=== PATIENT | female | born 1965 | race Caucasian/White ===

== ENCOUNTER 2016-09-29 11:15 | Outpatient (CLI) | payer OTHER | END 2016-09-29 11:16 | disposition home or self-care (01) | DX: G47.30 Sleep apnea, unspecified (principal); G47.8 Other sleep disorders; G47.10 Hypersomnia, unspecified; R06.83 Snoring ==

== ENCOUNTER 2016-10-17 19:28 | Emergency (ER) | payer OTHER ==
[2016-10-17] MEDS ORDERED: GLYCERIN ADULT SUPP PR STA ×2 (20:10→20:23)
[2016-10-17] MEDS ORDERED: GLYCERIN PEDIATRIC SUPP PR ONE ×2 (20:12→20:26)
[2016-10-17] MEDS ORDERED: MINERAL OIL ENEMA 133 ML BOTTLE RC STA (21:46)
== END 2016-10-17 22:55 | disposition home or self-care (01) ==
DX: K59.00 Constipation, unspecified (principal); I10 Essential (primary) hypertension; E78.00 Pure hypercholesterolemia, unspecified; K21.9 Gastro-esophageal reflux disease without esophagitis; Z79.82 Long term (current) use of aspirin; F17.200 Nicotine dependence, unspecified, uncomplicated
CPT/HCPCS: 99283; A9270

== ENCOUNTER 2018-03-22 11:24 | Observation (INO) | payer OTHER ==
[2018-03-22 12:21] LABS: BASOPHILS # (AUTO) 0.1 10^3/uL (0.0-0.1); BASOPHILS % (AUTO) 0.5 %; EOSINOPHILS # (AUTO) 0.1 10^3/uL (0.0-0.7); EOSINOPHILS % (AUTO) 0.8 %; HGB - HEMOGLOBIN 13.5 g/dL (12.0-16.0); LYMPHOCYTES % (AUTO) 8.1 %; MEAN CORPUSCULAR HEMOGLOBIN 32.3 pg (27.0-31.0); MEAN CORPUSCULAR HGB CONC 34.2 g/dL (32.0-36.0); MEAN CORPUSCULAR VOLUME 94.3 fL (81.0-99.0); MEAN PLATELET VOLUME 8.5 fL (7.9-10.8); MONOCYTES # (AUTO) 0.5 10^3/uL (0.0-1.0); MONOCYTES % (AUTO) 4.3 %; NEUTROPHILS # (AUTO) 10.2 10^3/uL (1.5-6.6); NEUTROPHILS % (AUTO) 86.3 %; PLT - PLATELET COUNT 205 10^3/uL (130-450); RED BLOOD COUNT 4.18 10^6/uL (4.20-5.40); RED CELL DISTRIBUTION WIDTH 13.1 % (12.0-15.0); WHITE BLOOD COUNT 11.8 x10^3/uL (4.8-10.8)
[2018-03-22 12:30] LABS: ALBUMIN 4.3 g/dL (3.2-5.5); ALBUMIN/GLOBULIN RATIO 1.3 (1.0-2.2); BILIRUBIN,TOTAL 0.8 mg/dL (0.2-1.0); CALCIUM 9.6 mg/dL (8.5-10.3); CREATININE 0.6 mg/dL (0.4-1.0); TOTAL PROTEIN 7.6 g/dL (6.7-8.2)
[2018-03-22] MEDS ORDERED: ONDANSETRON 4 MG/2 ML VIAL IVP STA (12:41)
[2018-03-22] MEDS ORDERED: IPRATROPIUM/ALBUTEROL 3 ML NEB INH STA (12:41)
--- NOTE | 2018-03-22 12:41 | ED Physician Documentation ---
History of Present Illness - Stated complaint Stated Complaint: COUGH/SOA - Chief complaint Chief Complaint: Resp - History obtained from History obtained from: Patient - History of Present Illness Timing: Today, How many hours ago (7) Pain level max: 6 Pain level now: 5 Improved by: nothing Worsened by: nothing - Additonal information Additional information: Patient is a 52-year-old female presents to the emergency department with vomiting this morning. Started about 6 AM. She states she had chest pain before the vomiting. The chest pain has continued and been constant. She did not take any of her home medications today. Is no longer nauseated. No fevers. Does have a dry cough. Feels mildly short of breath. Review of Systems Ten Systems: 10 systems reviewed and negative Constitutional: denies: Fever, Chills Ears: denies: Ear pain Nose: denies: Rhinorrhea / runny nose, Congestion Throat: denies: Sore throat Cardiac: reports: Chest pain / pressure Respiratory: reports: Cough, Wheezing GI: denies: Abdominal Pain, Nausea, Vomiting, Diarrhea : denies: Dysuria Skin: denies: Rash Musculoskeletal: denies: Neck pain, Back pain Neurologic: denies: Focal weakness, Numbness, Headache PD PAST MEDICAL HISTORY - Past Medical History Past Medical History: Yes Cardiovascular: Hypertension, High cholesterol Respiratory: None Endocrine/Autoimmune: Other GI: GERD, Hiatal hernia : None HEENT: None Psych: Panic attacks Musculoskeletal: None Derm: None - Past Surgical History Past Surgical History: Yes General: Appendectomy, Hiatal hernia repair, EGD - Present Medications Home Medications: Ambulatory Orders Medication Instructions Recorded Confirmed Losartan [Cozaar] 25 mg PO DAILY 01/12/14 03/22/18 Venlafaxine ER [Effexor ER] 75 mg PO DAILY 01/12/14 03/22/18 Aspirin [Aspir 81] 81 mg PO DAILY 02/06/14 03/22/18 Metoprolol Succinate 25 mg PO DAILY 02/18/16 03/22/18 Simvastatin 20 mg PO DAILY 02/18/16 03/22/18 Cetirizine HCl 10 mg PO DAILY 03/22/18 03/22/18 Omeprazole 40 mg PO DAILY 03/22/18 03/22/18 - Allergies Allergies/Adverse Reactions: Allergies Allergy/AdvReac Type Severity Reaction Status Date / Time No Known Drug Allergies Allergy Verified 03/18/17 19:30 - Social History Does the pt smoke?: Yes Smoking Status: Current every day smoker Does the pt drink ETOH?: Yes Does the pt have substance abuse?: No - Immunizations Immunizations are current?: Yes - POLST Patient has POLST: No PD ED PE NORMAL - Vitals Vital signs reviewed: Yes - General General: Alert and oriented X 3, No acute distress, Well developed/nourished - HEENT HEENT: PERRL, Moist mucous membranes - Neck Neck: Supple, no meningeal sign - Cardiac Cardiac: RRR, Strong equal pulses - Respiratory Respiratory: No respiratory distress, Other (wheezing B) - Abdomen Abdomen: Soft, Non tender, Non distended - Back Back: No spinal TTP - Derm Derm: Warm and dry - Extremities Extremities: No edema, No calf tenderness / cord - Neuro Neuro: Alert and oriented X 3 - Psych Psych: Normal mood, Normal affect Results - Vitals Vitals: Vital Signs - 24 hr 03/22/18 03/22/18 03/22/18 11:38 11:54 12:57 Temperature 36.5 C Heart Rate 88 79 90 Respiratory 20 16 20 Rate Blood Pressure 173/85 H 162/84 H O2 Saturation 95 96 03/22/18 03/22/18 03/22/18 13:02 13:36 13:40 Temperature Heart Rate 80 121 H 143 H Respiratory 14 11 L 18 Rate Blood Pressure 154/74 H 135/67 H 134/78 H O2 Saturation 99 96 94 03/22/18 03/22/18 03/22/18 13:47 13:50 14:00 Temperature Heart Rate 145 H 158 H 166 H Respiratory 18 16 Rate Blood Pressure 140/85 H 157/59 H 120/83 H O2 Saturation 94 2 L 03/22/18 03/22/18 03/22/18 14:15 15:03 15:37 Temperature Heart Rate 165 H 110 H 102 H Respiratory 12 18 16 Rate Blood Pressure 121/83 H 140/61 H 119/64 O2 Saturation 94 96 93 03/22/18 16:01 Temperature Heart Rate 101 H Respiratory 14 Rate Blood Pressure 130/67 O2 Saturation 98 Oxygen O2 Source Room air - EKG (time done) 1156 Rate: Rate (enter#) (80) Rhythm: NSR [place]: Normal Intervals: Normal [place] QRS: Normal Ischemia: Normal ST segments 1329 Rate: Rate (enter#) (159) Rhythm: Atrial fibrillation (RVR) [place]: Normal QRS: Normal Ischemia: Non specific changes Computer interpretation: Agree with computer - Labs Labs: Laboratory Tests 03/22/18 03/22/18 03/22/18 12:10 12:10 12:10 WBC 11.8 H RBC 4.18 L Hgb 13.5 Hct 39.4 MCV 94.3 MCH 32.3 H MCHC 34.2 RDW 13.1 Plt Count 205 MPV 8.5 Neut # (Auto) 10.2 H Lymph # (Auto) 1.0 L [place] # (Auto) 0.5 Eos # (Auto) 0.1 Baso # (Auto) 0.1 Absolute Nucleated RBC 0.00 Nucleated RBC % 0.0 Sodium 135 Potassium 4.1 Chloride 99 L Carbon Dioxide 25 Anion Gap 11.0 BUN 13 Creatinine 0.6 Estimated GFR (MDRD) 105 Glucose 118 H Calcium 9.6 Total Bilirubin 0.8 AST 28 ALT 45 Alkaline Phosphatase 127 H Troponin I < 0.04 Total Protein 7.6 Albumin 4.3 Globulin 3.3 Albumin/Globulin Ratio 1.3 Lipase 20 L - Rads (name of study) cxr Radiology: Prelim report reviewed, EMP read contemporaneously, See rad report ( No consolidation evident. ) PD MEDICAL DECISION MAKING - ED course Complexity details: reviewed old records, reviewed results, re-evaluated patient , considered differential, d/w patient, d/w events solutions consultant ED course: Patient is a 52-year-old female who presents to the emergency department with atrial fibrillation with rapid ventricular response. She also has chest pain. She initially was in sinus rhythm, but then developed the atrial fibrillation. No history of same. Given Cardizem which did slow her down, but did not convert. Discussed the case with Dr. Rebolledo and he asked that we try procainamide in the emergency department first, she did not convert during the infusion, but did convert soon after. She then developed recurrent chest pain so we will place her in the hospital for rule out MD and likely echo. This document was made in part using voice recognition software. While efforts are made to proofread this document, sound alike and grammatical errors may occur. - Sepsis Event Vital Signs: Vital Signs - 24 hr 03/22/18 03/22/18 03/22/18 11:38 11:54 12:57 Temperature 36.5 C Heart Rate 88 79 90 Respiratory 20 16 20 Rate Blood Pressure 173/85 H 162/84 H O2 Saturation 95 96 03/22/18 03/22/18 03/22/18 13:02 13:36 13:40 Temperature Heart Rate 80 121 H 143 H Respiratory 14 11 L 18 Rate Blood Pressure 154/74 H 135/67 H 134/78 H O2 Saturation 99 96 94 03/22/18 03/22/18 03/22/18 13:47 13:50 14:00 Temperature Heart Rate 145 H 158 H 166 H Respiratory 18 16 Rate Blood Pressure 140/85 H 157/59 H 120/83 H O2 Saturation 94 2 L 03/22/18 03/22/18 03/22/18 14:15 15:03 15:37 Temperature Heart Rate 165 H 110 H 102 H Respiratory 12 18 16 Rate Blood Pressure 121/83 H 140/61 H 119/64 O2 Saturation 94 96 93 03/22/18 16:01 Temperature Heart Rate 101 H Respiratory 14 Rate Blood Pressure 130/67 O2 Saturation 98 Oxygen O2 Source Room air Departure - Departure Disposition: ED Place in Observation Clinical Impression: New onset a-fib, Atrial fibrillation with RVR Chest pain Qualifiers: Chest pain type: unspecified Qualified Code(s): R07.9 - Chest pain, unspecified Condition: Stable Discharge Date/Time: 03/22/18 17:15
--- NOTE | 2018-03-22 12:50 | XRAY Report ---
Procedure Date: 03/22/2018 Accession Number: [id number] / [id number] Procedure: XR - Chest 2 View X-Ray CPT Code: 37298 FULL RESULT: EXAM: CHEST RADIOGRAPHY EXAM DATE: 03/22/2018 12:39 PM. CLINICAL HISTORY: Cough. Acute chest pain this morning. COMPARISON: CHEST 2 VIEW PA/LAT 07/27/2016. TECHNIQUE: 2 views. FINDINGS: Lungs/Pleura: No focal opacities evident. No pleural effusion. No pneumothorax. Normal volumes. Mediastinum: Heart and mediastinal contours are unremarkable. Other: None. IMPRESSION: No consolidation evident. RADIA
[2018-03-22] MEDS ORDERED: diltiaZEM INJ 5 MG/ML VIAL IVP STA (13:29)
[2018-03-22] MEDS ORDERED: diltiaZEM INJ 125 MG in DEXTROSE 5% 100 ML IV STA (13:37)
[2018-03-22] MEDS ORDERED: PROCAINAMIDE 1,000 MG in SODIUM CHLORIDE 0.9% 240 ML IV STA (13:46)
[2018-03-22] MEDS ORDERED: NITROGLYCERIN SL 0.4 MG TABLET SL STA (15:50)
[2018-03-22] MEDS ORDERED: ACETAMINOPHEN 325 MG TABLET PO PRN (16:06)
[2018-03-22] MEDS ORDERED: PROMETHAZINE 25 MG/1 ML VIAL IM PRN (16:06)
[2018-03-22] MEDS ORDERED: ZOLPIDEM 5 MG TABLET PO PRN (16:06)
[2018-03-22] MEDS ORDERED: ONDANSETRON 4 MG/2 ML VIAL IVP PRN (16:06)
[2018-03-22] MEDS ORDERED: PROCHLORPERAZINE 10 MG/2 ML VIAL IVP PRN (16:06)
[2018-03-22] MEDS ORDERED: NITROGLYCERIN SL 0.4 MG TABLET SL PRN (16:06)
--- NOTE | 2018-03-22 16:21 | HISTORY & PHYSICAL EXAMINATION ---
Chief Complaint - Chief Complaint Chief Complaint: Chest pain History of Present Illness - Admitted From Admitted From:: Emergency Department - History Obtained From Records Reviewed: Yes History obtained from: Patient Exam Limitations: None - History of Present Illness HPI Comment/Other: Patient is a 52-year-old female with a past medical history significant for obesity, esophageal spasm, hypertension, GERD and hyperlipidemia who presents to the emergency department with a chief complaint of chest pain. The patient states that when she woke up this morning she had a headache. She states that things started the day before when she started having some sinus congestion. She denies any fevers or chills. She states that around 630 this morning she began having chest pain and shortness of breath which continued on and off throughout the morning. She states that her chest pain was located substernal and radiated to the back. She states it was a sharp pain and was different from chest pain she has had in the past. Patient states that she had chest pain for several years where it radiated to her jaw and she was worked up by a picked edge sewing machine operator and found to have esophageal spasm. She states that she underwent an angiogram 3 years ago which showed some mild atherosclerosis but she did not require any stents. She states that she was having the shortness of breath associated with the chest pain. She states that the chest pain or shortness of breath were occurring at both rest and with exertion. She also admits to some numbness in her right hand associated with the chest pain. She denies any cough. She does admit that she was having some chills. She states that when she stood up she felt as though she was going to pass out and finally decided to come to the emergency department. The patient denies any diaphoresis but does state that she has been having nausea for about 1 week now. She denies any abdominal pain, dysuria, increased urinary urgency or frequency. Patient denies any blurred vision, sore throat, difficulty swallowing, orthopnea , PND, increased lower extremity swelling, diarrhea, constipation, back pain, neck stiffness, muscle aches, joint pain, joint swelling, rash, hair loss, changes in her appetite, recent unintentional weight loss or any focal neurologic deficits. On presentation to the emergency department the patient was initially afebrile and hypertensive with a normal heart rate and was not in any respiratory distress. The patient was found to have some slight wheezing on examination, was complaining of shortness of breath and chest paintherefore the emergency room physician gave her a neb treatment. The patient initially was underwent routine lab work which showed a negative troponin and a mild leukocytosis. The patient's chest x-ray was negative for any acute consolidation. The patient's EKG initially showed no ST elevations or acute ischemic changes. The patient shortly after receiving the nebulizer treatment went into atrial fibrillation with a rapid ventricular rate initially in the 120s. The heart rate then sheila to the 160s and patient was given a dose of 20 mg IV diltiazem. Despite the diltiazem the patient's heart rate remained in the 160s. The patient stated that she had never had atrial fibrillation before. The emergency room physician offered the patient a cardioversion but the patient refused. The emergency room physician then did a chemical cardioversion by giving her procainamide. After receiving 1 g of procainamide the patient did convert back to sinus rhythm with heart rate in the high 90s. Despite converting the patient continued to have intermittent chest pain. She continued to have substernal chest pain radiating to the back. With numbness in her right hand. She was given a dose of nitroglycerin with which the patient did seem to have some improvement. The patient was placed in observation for rule out of acute coronary syndrome and monitoring. History - Past Medical History Cardiovascular: reports: Hypertension, High cholesterol Respiratory: reports: None Endocrine/Autoimmune: reports: Other GI: reports: GERD, Hiatal hernia, Other (Esophageal spasm) : reports: None HEENT: reports: None Psych: reports: Panic attacks Musculoskeletal: reports: None Derm: reports: None MRSA Hx?: No - Past Surgical History General: reports: Appendectomy, Hiatal hernia repair, EGD - Family & Social History Family History: Mother: CVA/TIA, [place], Father: CAD, Sister: COPD/Emphysema Living arrangement: At home Living Situation: With spouse/s.o. Social History Notes: The patient lives in [place] with her . They have 2 children. She has been on [facility] for the last 20 years. She is originally from [place], [place]. The patient's was in the [place] so prior to coming to [facility] they lived in [facility]. 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 She states that she does smoke 1-2 cigarettes a day and has been doing so for 30+ years. She states that she has never been a heavy smoker and she denies any illicit drug use. She states that she does occasionally drink alcohol but is not a heavy drinker either. - POLST Patient has POLST: No POLST Status: Full Code Meds/Allgy - Home Medications Home Medications: Ambulatory Orders Medication Instructions Recorded Confirmed Losartan [Cozaar] 25 mg PO DAILY 01/12/14 03/22/18 Venlafaxine ER [Effexor ER] 75 mg PO DAILY 01/12/14 03/22/18 Aspirin [Aspir 81] 81 mg PO DAILY 02/06/14 03/22/18 Metoprolol Succinate 25 mg PO DAILY 02/18/16 03/22/18 Simvastatin 20 mg PO DAILY 02/18/16 03/22/18 Cetirizine HCl 10 mg PO DAILY 03/22/18 03/22/18 Omeprazole 40 mg PO DAILY 03/22/18 03/22/18 - Allergies Allergies/Adverse Reactions: Allergies Allergy/AdvReac Type Severity Reaction Status Date / Time No Known Drug Allergies Allergy Verified 10/17/16 19:30 Review of Systems - Other Findings Other Findings: A comprehensive review of systems was performed the pertinent positives and negatives are stated above in the HPI and the remainder of the review of systems is negative. Exam - Vital Signs Reviewed Vital Signs: Yes Vital Signs: Vital Signs x48h Temp Pulse Resp BP Pulse Ox 03/22/18 16:17 107 H 17 115/49 L 95 03/22/18 16:10 101 H 17 128/69 94 03/22/18 16:01 101 H 14 130/67 98 03/22/18 15:37 102 H 16 119/64 93 03/22/18 15:03 110 H 18 140/61 H 96 03/22/18 14:15 165 H 12 121/83 H 94 03/22/18 14:00 166 H 16 120/83 H 2 L 03/22/18 13:50 158 H 18 157/59 H 94 03/22/18 13:47 145 H 140/85 H 03/22/18 13:40 143 H 18 134/78 H 94 03/22/18 13:36 121 H 11 L 135/67 H 96 03/22/18 13:02 80 14 154/74 H 99 03/22/18 12:57 90 20 03/22/18 11:54 79 16 162/84 H 96 03/22/18 11:38 36.5 C 88 20 173/85 H 95 - Physical Exam General Appearance: positive: No acute distress, Alert Eyes Bilateral: positive: Normal inspection, PERRL, EOMI, No lid inflammation, Conjunctivae nml, No scleral icterus ENT: positive: ENT inspection nml, Pharynx nml, No signs of dehydration. negative: Purulent nasal drainage, Pharyngeal erythema, Oral lesions Neck: positive: Nml inspection, Thyroid nml, No JVD, Trachea midline. negative : Thyromegaly, Lymphadenopathy (R), Lymphadenopathy (L), Stiff neck, Carotid bruit, Tracheal deviation Respiratory: positive: Chest non-tender, No respiratory distress, Breath sounds nml. negative: Wheezes, Rales, Rhonchi Cardiovascular: positive: No murmur, No gallop, Tachycardia Peripheral Pulses: positive: 2+ Abdomen: positive: Non-tender, No organomegaly, Nml bowel sounds, No distention. negative: Guarding, Rebound, Hepatomegaly Back: positive: Nml inspection. negative: CVA tenderness (R), CVA tenderness (L ) Skin: positive: Color nml, No rash, Warm, Dry. negative: Cyanosis, Diaphoresis , Pallor, Skin rash Extremities: positive: Non-tender, Full ROM, Nml appearance, No pedal edema Neurologic/Psychiatric: positive: Oriented x3, CN's nml (2-12), Motor nml, Sensation nml, Mood/affect nml Conclusion/Plan - Problem List (1) Chest pain Conclusion/Plan: Patient has risk factors of HTN, obesity, hyperlipidemia and tobacco use. She had a clean coronary angiogram 3 years ago. Chest pain has atypical features but given new onset a fib it is concerning enough that patient needs observation for serial trops and echocardiogram. Patients initial EKG, chest xray and troponin were negative. Plan: Serial troponins x3 Telemetry monitoring Nitroglycerin when necessary for chest pain Aspirin Lipitor Echo Qualifiers: Chest pain type: unspecified Qualified Code(s): R07.9 - Chest pain, unspecified (2) New onset a-fib Conclusion/Plan: While patient was in the emergency department she developed atrial fibrillation with a rapid ventricular rate up to the 160s. Rate did not improve despite 20 mg of IV diltiazem. Patient was placed on procainamide 1 g over one hour. The patient converted back to sinus rhythm. The patient initially had presented with chest pain, shortness of breath and feeling as though she was going to pass out. These were all thought to be symptoms of her atrial fibrillation which was likely occurring off and on at home. The patient however continued to have chest pain after she converted to sinus rhythm. The patient's initial troponin and EKG were negative. The patient's chads 2 score is 1 therefore patient will be placed on aspirin. Plan: Continue patient's home dose of metoprolol for rate control and titrate as needed Echocardiogram Check TSH Serial troponins Telemetry monitoring Start aspirin Patient to follow-up with her picked edge sewing machine operator posthospitalization (3) Hypertension Conclusion/Plan: Patient has history of hypertension and on presentation she was hypertensive. After getting IV diltiazem and procainamide the patient's blood pressure has now improved. The patient will be continued on her home medications for hypertension including losartan and metoprolol. We will continue to monitor the patient's blood pressure and titrate medications as needed. Qualifiers: Hypertension type: essential hypertension Qualified Code(s): I10 - Essential (primary) hypertension (4) Hyperlipidemia Conclusion/Plan: Patient is a history of hyperlipidemia and is on simvastatin. While the patient is hospitalized we will place her on Lipitor. We will get a lipid profile in the morning. Qualifiers: Hyperlipidemia type: unspecified Qualified Code(s): E78.5 - Hyperlipidemia , unspecified (5) Tobacco abuse Conclusion/Plan: The patient smokes 1-2 cigarettes a day. Counseled on quitting smoking. Offered nicotine patch. - Lab Results Lab results reviewed: Yes Estuardo Bones: 03/22/18 12:10 03/22/18 12:10 - Diagnostic Imaging Results Diagnostic Imaging Results: positive: Final report reviewed Diagnostic Imaging Results Comments: Chest x-ray Impression: No consolidation evident - EKG Results EKG Interpreted Independently: Yes EKG Findings: inferior Q waves, no ST elevations, no ischemic changes Core Measures - Anticipated LOS I expect patient to be DC'd or transferred within 96 hours.: Yes - DVT/VTE - Prophylaxis VTE/DVT Prophylaxis med ordered at admit?: Yes
[2018-03-22] MEDS: VENLAFAXINE ER 75 MG CAPSULE PO SCH (17:58)
[2018-03-22] MEDS: METOPROLOL SUCCINATE 25 MG TABLET PO SCH (17:59)
[2018-03-22] MEDS: SODIUM CHLORIDE FLUSH 0.9% 10 ML SYRINGE IVP SCH (17:59)
[2018-03-22] MEDS: oxyCODONE 5 MG TABLET PO PRN (18:02)
[2018-03-22] MEDS: MORPHINE 2 MG/ML SYRINGE IVP PRN (22:28)
[2018-03-22] MEDS: SODIUM CHLORIDE FLUSH 0.9% 10 ML SYRINGE IVP PRN (22:29)
[2018-03-23] MEDS: SODIUM CHLORIDE FLUSH 0.9% 10 ML SYRINGE IVP SCH ×2 (00:16→13:36)
[2018-03-23] MEDS: MORPHINE 2 MG/ML SYRINGE IVP PRN ×2 (02:39→05:03)
[2018-03-23] MEDS: SODIUM CHLORIDE FLUSH 0.9% 10 ML SYRINGE IVP PRN ×3 (02:39→05:08)
[2018-03-23 03:29] LABS: BASOPHILS # (AUTO) 0.1 10^3/uL (0.0-0.1); BASOPHILS % (AUTO) 0.8 %; EOSINOPHILS # (AUTO) 0.2 10^3/uL (0.0-0.7); EOSINOPHILS % (AUTO) 2.8 %; HGB - HEMOGLOBIN 12.7 g/dL (12.0-16.0); LYMPHOCYTES # (AUTO) 1.7 10^3/uL (1.5-3.5); MEAN CORPUSCULAR HEMOGLOBIN 33.1 pg (27.0-31.0); MEAN CORPUSCULAR HGB CONC 35.1 g/dL (32.0-36.0); MEAN CORPUSCULAR VOLUME 94.2 fL (81.0-99.0); MEAN PLATELET VOLUME 8.4 fL (7.9-10.8); MONOCYTES # (AUTO) 0.5 10^3/uL (0.0-1.0); MONOCYTES % (AUTO) 7.8 %; NEUTROPHILS # (AUTO) 4.3 10^3/uL (1.5-6.6); NEUTROPHILS % (AUTO) 63.6 %; PLT - PLATELET COUNT 191 10^3/uL (130-450); RED BLOOD COUNT 3.83 10^6/uL (4.20-5.40); RED CELL DISTRIBUTION WIDTH 13.2 % (12.0-15.0); WHITE BLOOD COUNT 6.8 x10^3/uL (4.8-10.8)
[2018-03-23 03:42] LABS: ALBUMIN 3.8 g/dL (3.2-5.5); ALBUMIN/GLOBULIN RATIO 1.3 (1.0-2.2); ALKALINE PHOSPHATASE 106 IU/L (42-121); ALT ALANINE AMINOTRANSFERASE 29 IU/L (10-60); AST ASPARTATE AMINOTRANSFERASE 20 IU/L (10-42); BILIRUBIN,TOTAL 0.6 mg/dL (0.2-1.0); BUN - BLOOD UREA NITROGEN 11 mg/dL (6-20); CALCIUM 9.1 mg/dL (8.5-10.3); CARBON DIOXIDE - CO2 24 mmol/L (21-32); CHLORIDE 102 mmol/L (101-111); CHOL/HDL RATIO 3.7 (<4.4); CHOLESTEROL 187 mg/dL; CREATININE 0.5 mg/dL (0.4-1.0); GFR - MDRD 130 (>89); GLUCOSE 110 mg/dL (70-100); HDL CHOLESTEROL 50 mg/dL; LDL CHOLESTEROL,CALCULATED 97 mg/dL; LDL/HDL RATIO 1.9 (<4.4); SODIUM 136 mmol/L (135-145); TOTAL PROTEIN 6.7 g/dL (6.7-8.2); VLDL CHOLESTEROL 40 mg/dL
[2018-03-23] MEDS: oxyCODONE 5 MG TABLET PO PRN ×2 (05:55→09:53)
[2018-03-23] MEDS ORDERED: PANTOPRAZOLE 40 MG TABLET PO SCH (07:00)
[2018-03-23] MEDS ORDERED: IOPAMIDOL-300 100 ML VIAL ONE (08:57)
[2018-03-23] MEDS ORDERED: LOSARTAN 50 MG TABLET PO SCH (09:00)
[2018-03-23] MEDS ORDERED: POLYETHYLENE GLYCOL 3350 17 GM PACKET PO SCH (09:00)
[2018-03-23] MEDS ORDERED: ENOXAPARIN 40 MG/0.4 ML SYRINGE SUBQ SCH (09:00)
[2018-03-23] MEDS ORDERED: SODIUM CHLORIDE 0.9% 1,000 ML IV SCH (09:00)
[2018-03-23] MEDS ORDERED: CETIRIZINE 10 MG TABLET PO SCH (09:00)
[2018-03-23] MEDS ORDERED: ATORVASTATIN 10 MG TABLET PO SCH (09:00)
[2018-03-23] MEDS ORDERED: ASPIRIN EC 81 MG TABLET PO SCH (09:00)
[2018-03-23] MEDS: METOPROLOL SUCCINATE 25 MG TABLET PO SCH (09:53)
[2018-03-23] MEDS: VENLAFAXINE ER 75 MG CAPSULE PO SCH (09:53)
--- NOTE | 2018-03-23 11:43 | CT Report ---
Procedure Date: 03/23/2018 Accession Number: [id number] / [id number] Procedure: CT - Chest Angio (PE) CPT Code: FULL RESULT: EXAM: CT ANGIOGRAM CHEST EXAM DATE: 03/23/2018 11:09 AM. CLINICAL HISTORY: Pleurtic chest pain and SOB w new onset a fib. COMPARISON: None. TECHNIQUE: Routine helical imaging was performed through the chest in the pulmonary arterial phase. IV Contrast: ISOVUE 300 80mL. Reconstructions: Coronal 3-D MIP reconstructions.Sagittal and coronal. In accordance with CT protocol optimization, one or more of the following dose reduction techniques were utilized for this exam: automated exposure control, adjustment of mA and/or KV based on patient size, or use of iterative reconstructive technique. FINDINGS: Pulmonary Arteries: Diagnostic quality: Adequate through the segmental arteries. No evidence for acute or chronic pulmonary emboli. RV/LV is within normal limits. There is no interventricular septal bowing. There is mild reflux of contrast material in the IVC. Lungs/Pleura: Scattered areas of subsegmental atelectasis are seen bilaterally, most marked right lower lobe. No nodules, or edema. No effusions or pneumothorax. Mediastinum: no cardiac enlargement or adenopathy. Thoracic Aorta: Unremarkable. Upper Abdomen: Unremarkable. Other: Unremarkable bony structures. IMPRESSION: 1. No pulmonary emboli. 2. Scattered areas of subsegmental atelectasis bilaterally, most marked right lower lobe. RADIA
--- NOTE | 2018-03-23 12:05 | Discharge Plan ---
Discharge Plan Disposition: Home, Self Care Condition: Fair Prescriptions: Ibuprofen 600 mg PO BID #14 tablet Metoprolol Succinate [Toprol Xl] 25 mg PO DAILY #30 tablet Diet: Diabetic Activity Restrictions: No Restrictions Shower Restrictions: No Driving Restrictions: No Weight Bearing: Full Weight Additional Instructions or Follow Up instructions: You were admitted for chest pain and our work up was negative for pneumonia, heart attack, blood clot to your lungs and congestive heart failure. We believe that your pain is musculoskeletal so I have prescribed you ibuprofen 600 mg that you should take twice a day for the next week and hopefully this will help to treat your pain. If the pain continues beyond that I suggest you see your PCP. While you were in the ER you were found to have atrial fibrillation with a rapid rate. You converted back to normal sinus rhythm but you need to follow up with your ending machine operator regarding the A fib for further evaluation. For now continue to take aspirin and metoprolol. No Smoking: If you smoke, Please STOP! Call for help. Follow-up with: CATHRYN GUERRA PA-C [Primary Care Provider] -
[2018-03-23 12:18] VITALS: BP 135/70
--- NOTE | 2018-03-23 12:51 | DISCHARGE SUMMARY ---
Discharge Summary Admit Date: 03/22/18 Discharge Date: 03/23/18 Discharging Provider: Pardeep Rebolledo MD Primary Care Provider: Zulema Villela MD Code Status: Attempt Resuscitation Condition at Discharge: Fair Discharge Disposition: 01 Home, Self Care - DIAGNOSES Admission Diagnoses: 1. Chest Pain 2. New Onset Atrial Fibrillation 3. Hypertension 4. Hyperlipidemia 5. Tobacco Abuse Discharge Diagnoses with Status of Each Condition: 1. Chest Pain: Stable 2. New Onset Atrial Fibrillation: Stable 3. Hypertension: Stable 4. Hyperlipidemia: Stable 5. Tobacco Abuse: Stable - HPI History of Present Illness: Patient is a 52-year-old female with a past medical history significant for obesity, esophageal spasm, hypertension, GERD and hyperlipidemia who presents to the emergency department with a chief complaint of chest pain. The patient states that when she woke up this morning she had a headache. She states that things started the day before when she started having some sinus congestion. She denies any fevers or chills. She states that around 630 this morning she began having chest pain and shortness of breath which continued on and off throughout the morning. She states that her chest pain was located substernal and radiated to the back. She states it was a sharp pain and was different from chest pain she has had in the past. Patient states that she had chest pain for several years where it radiated to her jaw and she was worked up by a it director and found to have esophageal spasm. She states that she underwent an angiogram 3 years ago which showed some mild atherosclerosis but she did not require any stents. She states that she was having the shortness of breath associated with the chest pain. She states that the chest pain or shortness of breath were occurring at both rest and with exertion. She also admits to some numbness in her right hand associated with the chest pain. She denies any cough. She does admit that she was having some chills. She states that when she stood up she felt as though she was going to pass out and finally decided to come to the emergency department. The patient denies any diaphoresis but does state that she has been having nausea for about 1 week now. She denies any abdominal pain, dysuria, increased urinary urgency or frequency. Patient denies any blurred vision, sore throat, difficulty swallowing, orthopnea , PND, increased lower extremity swelling, diarrhea, constipation, back pain, neck stiffness, muscle aches, joint pain, joint swelling, rash, hair loss, changes in her appetite, recent unintentional weight loss or any focal neurologic deficits. On presentation to the emergency department the patient was initially afebrile and hypertensive with a normal heart rate and was not in any respiratory distress. The patient was found to have some slight wheezing on examination, was complaining of shortness of breath and chest paintherefore the emergency room physician gave her a neb treatment. The patient initially was underwent routine lab work which showed a negative troponin and a mild leukocytosis. The patient's chest x-ray was negative for any acute consolidation. The patient's EKG initially showed no ST elevations or acute ischemic changes. The patient shortly after receiving the nebulizer treatment went into atrial fibrillation with a rapid ventricular rate initially in the 120s. The heart rate then sheila to the 160s and patient was given a dose of 20 mg IV diltiazem. Despite the diltiazem the patient's heart rate remained in the 160s. The patient stated that she had never had atrial fibrillation before. The emergency room physician offered the patient a cardioversion but the patient refused. The emergency room physician then did a chemical cardioversion by giving her procainamide. After receiving 1 g of procainamide the patient did convert back to sinus rhythm with heart rate in the high 90s. Despite converting the patient continued to have intermittent chest pain. She continued to have substernal chest pain radiating to the back. With numbness in her right hand. She was given a dose of nitroglycerin with which the patient did seem to have some improvement. The patient was placed in observation for rule out of acute coronary syndrome and monitoring. - HOSPITAL COURSE Hospital Course: (1) Chest pain Conclusion/Plan: Patient has risk factors of HTN, obesity, hyperlipidemia and tobacco use. She had a clean coronary angiogram 3 years ago. Chest pain has atypical features but given new onset a fib it is concerning enough that patient needs observation for serial trops and echocardiogram. Patients initial EKG, chest xray and troponin were negative. Troponin negative x3, Echo showed normal EF with no wall motion abnormalities and was otherwise unremarkable. Patient continued to have persistent chest pain which was worse with deep breathing therefore CTA lungs was ordered and was negative for PE. Patients chest pain thought to most likely be MSK and therefore patient discharged with NSAID to take for 1 week. Patient will follow up with PCP if pain persists. Consider stress test as an outpatient. (2) New onset a-fib Conclusion/Plan: While patient was in the emergency department she developed atrial fibrillation with a rapid ventricular rate up to the 160s. Rate did not improve despite 20 mg of IV diltiazem. Patient was placed on procainamide 1 g over one hour. The patient converted back to sinus rhythm. The patient initially had presented with chest pain, shortness of breath and feeling as though she was going to pass out. These were all thought to be symptoms of her atrial fibrillation which was likely occurring off and on at home. The patient however continued to have chest pain after she converted to sinus rhythm. The patient's initial troponin and EKG were negative. The patient's chads 2 score is 1 therefore patient will be placed on aspirin. Trop negative, Echo normal and TSH normal No further episodes of a fib on tele overnight. CTA Lungs negative Patient continued on ASA and metoprolol Follow up with cardiology as outpatient. (3) Hypertension Conclusion/Plan: Stable Continued on home meds at discharge Qualifiers: Hypertension type: essential hypertension Qualified Code(s): I10 - Essential (primary) hypertension (4) Hyperlipidemia Conclusion/Plan: LDL less than 100 Well controlled Continue simvastatin Qualifiers: Hyperlipidemia type: unspecified Qualified Code(s): E78.5 - Hyperlipidemia , unspecified (5) Tobacco abuse Conclusion/Plan: The patient smokes 1-2 cigarettes a day. Counseled on quitting smoking. - ALLERGIES Allergies/Adverse Reactions: Allergies Allergy/AdvReac Type Severity Reaction Status Date / Time No Known Drug Allergies Allergy Verified 10/17/16 19:30 - MEDICATIONS Home Medications: Ambulatory Orders Medication Instructions Recorded Confirmed Losartan [Cozaar] 25 mg PO DAILY 01/12/14 03/22/18 Venlafaxine ER [Effexor ER] 75 mg PO DAILY 01/12/14 03/22/18 Aspirin [Aspir 81] 81 mg PO DAILY 02/06/14 03/22/18 Metoprolol Succinate 25 mg PO DAILY 02/18/16 03/22/18 Simvastatin 20 mg PO DAILY 02/18/16 03/22/18 Cetirizine HCl 10 mg PO DAILY 03/22/18 03/22/18 Omeprazole 40 mg PO DAILY 03/22/18 03/22/18 Ibuprofen 600 mg PO BID #14 tablet 03/23/18 Metoprolol Succinate [Toprol Xl] 25 mg PO DAILY #30 tablet 03/23/18 - PHYSICAL EXAM AT DISCHARGE General Appearance: positive: No acute distress, Alert Eyes Bilateral: positive: Normal inspection, PERRL, EOMI, No lid inflammation, Conjunctivae nml, No scleral icterus ENT: positive: ENT inspection nml, Pharynx nml, No signs of dehydration. negative: Purulent nasal drainage, Pharyngeal erythema, Oral lesions Neck: positive: Nml inspection, Thyroid nml, No JVD, Trachea midline. negative : Lymphadenopathy (R), Lymphadenopathy (L), Stiff neck, Carotid bruit, Tracheal deviation Respiratory: positive: No respiratory distress, Breath sounds nml, Other (CHest wall is tender). negative: Wheezes, Rales, Rhonchi Cardiovascular: positive: Regular rate & rhythm, No murmur, No gallop Peripheral Pulses: positive: 2+ Abdomen: positive: Non-tender, No organomegaly, Nml bowel sounds, No distention. negative: Guarding, Rebound, Hepatomegaly Back: positive: Nml inspection. negative: CVA tenderness (R), CVA tenderness (L ) Skin: positive: Color nml, No rash, Warm. negative: Cyanosis, Diaphoresis, Pallor, Skin rash Extremities: positive: Non-tender, Full ROM, Nml appearance, No pedal edema Neurologic/Psychiatric: positive: Oriented x3, CN's nml (2-12), Motor nml, Sensation nml - LABS Result Diagrams: 03/23/18 03:10 03/23/18 03:10 Other Lab Results: Laboratory Results WBC 6.8 x10^3/uL (4.8-10.8) 03/23/18 03:10 RBC 3.83 10^6/uL (4.20-5.40) L 03/23/18 03:10 Hgb 12.7 g/dL (12.0-16.0) 03/23/18 03:10 Hct 36.1 % (37.0-47.0) L 03/23/18 03:10 MCV 94.2 fL (81.0-99.0) 03/23/18 03:10 MCH 33.1 pg (27.0-31.0) H 03/23/18 03:10 MCHC 35.1 g/dL (32.0-36.0) 03/23/18 03:10 RDW 13.2 % (12.0-15.0) 03/23/18 03:10 Plt Count 191 10^3/uL (130-450) 03/23/18 03:10 MPV 8.4 fL (7.9-10.8) 03/23/18 03:10 Neut # (Auto) 4.3 10^3/uL (1.5-6.6) 03/23/18 03:10 Lymph # (Auto) 1.7 10^3/uL (1.5-3.5) 03/23/18 03:10 [place] # (Auto) 0.5 10^3/uL (0.0-1.0) 03/23/18 03:10 Eos # (Auto) 0.2 10^3/uL (0.0-0.7) 03/23/18 03:10 Baso # (Auto) 0.1 10^3/uL (0.0-0.1) 03/23/18 03:10 Absolute Nucleated RBC 0.00 x10^3/uL 03/23/18 03:10 Nucleated RBC % 0.0 /100WBC 03/23/18 03:10 Sodium 136 mmol/L (135-145) 03/23/18 03:10 Potassium 3.2 mmol/L (3.5-5.0) L 03/23/18 03:10 Chloride 102 mmol/L (101-111) 03/23/18 03:10 Carbon Dioxide 24 mmol/L (21-32) 03/23/18 03:10 Anion Gap 10.0 (6-13) 03/23/18 03:10 BUN 11 mg/dL (6-20) 03/23/18 03:10 Creatinine 0.5 mg/dL (0.4-1.0) 03/23/18 03:10 Estimated GFR (MDRD) 130 (>89) 03/23/18 03:10 Glucose 110 mg/dL (70-100) H 03/23/18 03:10 Calcium 9.1 mg/dL (8.5-10.3) 03/23/18 03:10 Total Bilirubin 0.6 mg/dL (0.2-1.0) 03/23/18 03:10 AST 20 IU/L (10-42) 03/23/18 03:10 ALT 29 IU/L (10-60) 03/23/18 03:10 Alkaline Phosphatase 106 IU/L (42-121) 03/23/18 03:10 Troponin I < 0.04 ng/mL (<0.49) 03/23/18 03:10 B-Natriuretic Peptide 118 pg/mL (5-100) H 03/23/18 03:10 Total Protein 6.7 g/dL (6.7-8.2) 03/23/18 03:10 Albumin 3.8 g/dL (3.2-5.5) 03/23/18 03:10 Globulin 2.9 g/dL (2.1-4.2) 03/23/18 03:10 Albumin/Globulin Ratio 1.3 (1.0-2.2) 03/23/18 03:10 Triglycerides 200 mg/dL (-149) H 03/23/18 03:10 Cholesterol 187 mg/dL (-199) 03/23/18 03:10 LDL Cholesterol, Calc 97 mg/dL (-129) 03/23/18 03:10 VLDL Cholesterol 40 mg/dL 03/23/18 03:10 HDL Cholesterol 50 mg/dL (60-) L 03/23/18 03:10 LDL/HDL Ratio 1.9 (<4.4) 03/23/18 03:10 Cholesterol/HDL Ratio 3.7 (<4.4) 03/23/18 03:10 Lipase 20 U/L (22-51) L 03/22/18 12:10 TSH 4.87 uIU/mL (0.34-5.60) 03/23/18 03:10 - DIAGNOSTIC IMAGING Diagnostic Imaging Results: Final report reviewed Diagnostic Imaging Results Comments: Echo: EF 65-70& No wall motion abnormalities Normal LA, RA and RV Mild concentric LVH Essentially normal valves No mass or thrombus No effusion Chest x-ray Impression: No consolidation evident - FOLLOW UP Follow Up: Patient will follow up with PCP regarding chest pain and it director regarding new onset atrial fibrillation. Patient is in normal sinus rhythm at discharge. Discharged with ibuprofen to treat MSK chest pain and ASA and metoprolol for a fib. - TIME SPENT Time Spent in Discharge (Minutes): 35
[2018-03-23] MEDS ORDERED: IOPAMIDOL-300 100 ML VIAL IVP ONE (13:03)
== END 2018-03-23 14:00 | disposition home or self-care (01) ==
LOC: ED 11:24 → MS2 16:06
PROVIDERS: ADMIT Internal Medicine; ATTEND Internal Medicine
DX: R07.9 Chest pain, unspecified (principal); I48.91 Unspecified atrial fibrillation; I10 Essential (primary) hypertension; E78.5 Hyperlipidemia, unspecified; E66.9 Obesity, unspecified; Z68.34 Body mass index [BMI] 34.0-34.9, adult; K22.4 Dyskinesia of esophagus; K21.9 Gastro-esophageal reflux disease without esophagitis; K44.9 Diaphragmatic hernia without obstruction or gangrene; F17.210 Nicotine dependence, cigarettes, uncomplicated; F41.0 Panic disorder [episodic paroxysmal anxiety]; Z79.82 Long term (current) use of aspirin
CPT/HCPCS: 36415; 71046; 71275; 80053; 80061; 83690; 83880; 84443; 84484; 85025; 93005; 93306; 94640; 96365; 96372; 96375; 96376; 99284; A9270; G0378; J1650; J2270; J2690; Q9967; 83721; 87086; 99285

== ENCOUNTER 2018-07-28 13:49 | Emergency (ER) | payer OTHER ==
[2018-07-28 14:23] LABS: BASOPHILS # (AUTO) 0.1 10^3/uL (0.0-0.1); BASOPHILS % (AUTO) 0.9 %; EOSINOPHILS # (AUTO) 0.2 10^3/uL (0.0-0.7); HGB - HEMOGLOBIN 13.9 g/dL (12.0-16.0); LYMPHOCYTES # (AUTO) 1.9 10^3/uL (1.5-3.5); LYMPHOCYTES % (AUTO) 25.7 %; MEAN CORPUSCULAR HEMOGLOBIN 32.2 pg (27.0-31.0); MEAN CORPUSCULAR HGB CONC 34.3 g/dL (32.0-36.0); MEAN CORPUSCULAR VOLUME 93.9 fL (81.0-99.0); MEAN PLATELET VOLUME 8.6 fL (7.9-10.8); MONOCYTES # (AUTO) 0.5 10^3/uL (0.0-1.0); MONOCYTES % (AUTO) 6.8 %; NEUTROPHILS # (AUTO) 4.8 10^3/uL (1.5-6.6); NEUTROPHILS % (AUTO) 64.6 %; PLT - PLATELET COUNT 218 10^3/uL (130-450); RED CELL DISTRIBUTION WIDTH 14.1 % (12.0-15.0); WHITE BLOOD COUNT 7.4 x10^3/uL (4.8-10.8)
[2018-07-28 14:39] LABS: ALBUMIN 4.1 g/dL (3.2-5.5); ALBUMIN/GLOBULIN RATIO 1.4 (1.0-2.2); BILIRUBIN,TOTAL 0.4 mg/dL (0.2-1.0); CREATININE 0.6 mg/dL (0.4-1.0)
[2018-07-28 14:46] LABS: CALCIUM 10.4 mg/dL (8.5-10.3)
[2018-07-28] MEDS ORDERED: METOPROLOL 5 MG/5 ML VIAL IVP STA ×2 (15:40→16:39)
--- NOTE | 2018-07-28 15:44 | ED Physician Documentation ---
PD HPI CHEST PAIN - Stated complaint Stated Complaint: HEART RACING - Chief complaint Chief Complaint: Cardiac - History obtained from History obtained from: Patient, Family - History of Present Illness Timing - onset: Other (She has had A. fib x1, she is on metoprolol 50 mg a day. For the last 4 days it feels like her heart is jumping around in her chest. Unlike the original episode it is not painful. She was hospitalized here in March for same, had an echo at the time that was normal and ruled out. She does feel more short of breath for the last few days. She is a smoker but says she is not a heavy smoker. Denies a cough or pedal edema.) Review of Systems Ten Systems: 10 systems reviewed and negative Constitutional: denies: Fever, Chills Cardiac: reports: Palpitations. denies: Chest pain / pressure Respiratory: reports: Dyspnea. denies: Cough PD PAST MEDICAL HISTORY - Past Medical History Cardiovascular: Hypertension, High cholesterol Respiratory: None Endocrine/Autoimmune: Other GI: GERD, Hiatal hernia : None HEENT: None Psych: Panic attacks Musculoskeletal: None Derm: None - Past Surgical History Past Surgical History: Yes General: Appendectomy, Hiatal hernia repair, EGD - Present Medications Home Medications: Ambulatory Orders Medication Instructions Recorded Confirmed RX: Losartan [Cozaar] 25 mg PO DAILY 01/12/14 03/22/18 RX: Venlafaxine ER [Effexor ER] 75 mg PO DAILY 01/12/14 03/22/18 RX: Aspirin [Aspir 81] 81 mg PO DAILY 02/06/14 03/22/18 RX: Metoprolol Succinate 25 mg PO DAILY 02/18/16 03/22/18 RX: Simvastatin 20 mg PO DAILY 02/18/16 03/22/18 RX: Cetirizine HCl 10 mg PO DAILY 03/22/18 03/22/18 RX: Omeprazole 40 mg PO DAILY 03/22/18 03/22/18 RX: Ibuprofen 600 mg PO BID #14 tablet 03/23/18 RX: Metoprolol Succinate [Toprol 25 mg PO DAILY #30 tablet 03/23/18 Xl] RX: Flecainide [Tambocar] 4 tab PO DAILY PRN #24 tablet 07/28/18 - Allergies Allergies/Adverse Reactions: Allergies Allergy/AdvReac Type Severity Reaction Status Date / Time No Known Drug Allergies Allergy Verified 07/28/18 13:58 - Social History Does the pt smoke?: Yes Smoking Status: Current every day smoker Does the pt drink ETOH?: Yes Does the pt have substance abuse?: No - Immunizations Immunizations are current?: Yes - POLST Patient has POLST: No POLST Status: Full Code PD ED PE NORMAL - Vitals Vital signs reviewed: Yes - General General: Alert and oriented X 3, No acute distress - HEENT HEENT: PERRL, EOMI - Neck Neck: Supple, no meningeal sign, No bony TTP - Cardiac Cardiac: RRR, No murmur - Respiratory Respiratory: No respiratory distress, Clear bilaterally - Abdomen Abdomen: Non tender - Back Back: No CVA TTP, No spinal TTP - Derm Derm: Normal color, Warm and dry, No rash - Extremities Extremities: No edema, No calf tenderness / cord - Neuro Neuro: Alert and oriented X 3, Normal speech Results - Vitals Vitals: Vital Signs - 24 hr 07/28/18 07/28/18 07/28/18 13:56 16:16 16:20 Temperature 36.1 C L Heart Rate 80 74 73 Respiratory 18 16 13 Rate Blood Pressure 145/85 H 152/86 H 157/82 H O2 Saturation 97 98 97 07/28/18 07/28/18 07/28/18 16:23 16:35 16:48 Temperature Heart Rate 73 74 79 Respiratory 13 16 11 L Rate Blood Pressure 151/72 H 138/77 H 132/85 H O2 Saturation 100 97 100 07/28/18 07/28/18 07/28/18 17:00 17:25 18:00 Temperature Heart Rate 68 71 77 Respiratory 13 15 14 Rate Blood Pressure 140/81 H 136/87 H 141/90 H O2 Saturation 97 97 98 07/28/18 07/28/18 18:25 18:28 Temperature Heart Rate 78 85 Respiratory 17 20 Rate Blood Pressure 128/68 128/68 O2 Saturation 98 100 Oxygen O2 Source Room air - EKG (time done) 1353 Rate: Rate (enter#) (76) Rhythm: NSR (With frequent PVCs and PACs) [place]: Normal Intervals: Normal [place] QRS: Normal Ischemia: Normal ST segments - Labs Labs: Laboratory Tests 07/28/18 07/28/18 07/28/18 14:18 14:18 14:18 WBC 7.4 RBC 4.30 Hgb 13.9 Hct 40.3 MCV 93.9 MCH 32.2 H MCHC 34.3 RDW 14.1 Plt Count 218 MPV 8.6 Neut # (Auto) 4.8 Lymph # (Auto) 1.9 [place] # (Auto) 0.5 Eos # (Auto) 0.2 Baso # (Auto) 0.1 Absolute Nucleated RBC 0.00 Nucleated RBC % 0.0 Sodium 136 Potassium 4.1 Chloride 101 Carbon Dioxide 26 Anion Gap 9.0 BUN 18 Creatinine 0.6 Estimated GFR (MDRD) 105 Glucose 128 H Calcium 10.4 H Total Bilirubin 0.4 AST 28 ALT 34 Alkaline Phosphatase 124 H Troponin I < 0.04 Total Protein 7.0 Albumin 4.1 Globulin 2.9 Albumin/Globulin Ratio 1.4 Lipase 37 - Rads (name of study) 1v chest Radiology: EMP read contemporaneously (Normal) PD MEDICAL DECISION MAKING - ED course ED course: On telemetry monitoring she does have occasional episodes of short atrial fibrillation which do make her more symptomatic measuring 5-10 seconds at a time. She they are very symptomatic and distressing for her though so she was administered divided doses of IV Lopressor which decreased the frequency and symptomatology of these but did not eliminate it and she wanted to try something else so oral flecainide 300 mg was ordered. After flecainide she had no further atrial arrhythmias and cardiology follow-up was advised. Departure - Departure Disposition: 01 Home, Self Care Clinical Impression: Paroxysmal atrial fibrillation Condition: Good Record reviewed to determine appropriate education?: Yes Instructions: Atrial Fibrillation Dc Prescriptions: RX: Flecainide [Tambocar] 4 tab PO DAILY PRN #24 tablet PRN Reason: atrial fibrillation Comments: Continue your usual medications including aspirin. Return for new or worsening symptoms. Follow-up with the grout machine tender as soon as possible as you are already trying to arrange. Discharge Date/Time: 07/28/18 18:31
--- NOTE | 2018-07-28 16:13 | XRAY Report ---
Reason: Back pain, CP, SOA for 4 days Procedure Date: 07/28/2018 Accession Number: [id number] / [id number] Procedure: XR - Chest 1 View X-Ray CPT Code: 62639 FULL RESULT: EXAM: CHEST RADIOGRAPHY EXAM DATE: 07/28/2018 03:57 PM. CLINICAL HISTORY: Back pain, chest pain, shortness of breath for 4 days. COMPARISON: CHEST 2 VIEW 03/22/2018 12:28 PM. TECHNIQUE: 1 view. FINDINGS: Lungs/Pleura: No focal opacities evident. No pleural effusion. No pneumothorax. Mediastinum: Within exam limitations, the cardiomediastinal contour is normal. Other: No bony abnormality identified. IMPRESSION: Normal single view chest. RADIA
[2018-07-28] MEDS ORDERED: FLECAINIDE 50 MG TABLET PO STA (17:32)
[2018-07-28 18:29] VITALS: BP 128/68
== END 2018-07-28 18:31 | disposition home or self-care (01) ==
LOC: ED 13:49
DX: I48.0 Paroxysmal atrial fibrillation (principal); I10 Essential (primary) hypertension; E78.00 Pure hypercholesterolemia, unspecified; F17.200 Nicotine dependence, unspecified, uncomplicated
CPT/HCPCS: 36415; 71045; 80053; 83690; 84484; 85025; 93005; 96374; 99283; 99284; A9270

== ENCOUNTER 2019-02-22 08:00 | Outpatient (CLI) | payer OTHER | END 2019-02-22 23:59 | disposition home or self-care (01) | LOC: LAB.R 08:00 | PROVIDERS: ATTEND Internal Medicine Critical Care Medicine | DX: R19.7 Diarrhea, unspecified (principal) | CPT/HCPCS: 81599; 83630; 87045; 87046; 87329 ==

== ENCOUNTER 2019-03-18 12:13 | Emergency (ER) | payer OTHER ==
[2019-03-18] MEDS ORDERED: METOPROLOL 5 MG/5 ML VIAL IVP STA (12:51)
--- NOTE | 2019-03-18 12:53 | ED Physician Documentation ---
History of Present Illness - Stated complaint Stated Complaint: A FIB - Chief complaint Chief Complaint: Cardiac - History obtained from History obtained from: Patient - History of Present Illness Timing: How many hours ago (1) Pain level max: 0 Pain level now: 0 Improved by: nothing Worsened by: nothing - Additonal information Additional information: states felt herself go into afib at 1130. took her flecanide and came here for evaluation. Has a past history of afib. no chest pain. no shortness of breath. Review of Systems Constitutional: denies: Fever, Chills GI: denies: Nausea, Vomiting, Diarrhea Skin: denies: Rash Musculoskeletal: denies: Neck pain, Back pain Neurologic: denies: Headache PD PAST MEDICAL HISTORY - Past Medical History Cardiovascular: Hypertension, High cholesterol Respiratory: None Endocrine/Autoimmune: Other GI: GERD, Hiatal hernia : None HEENT: None Psych: Panic attacks Musculoskeletal: None Derm: None - Past Surgical History Past Surgical History: Yes General: Appendectomy, Hiatal hernia repair, EGD - Present Medications Home Medications: Ambulatory Orders Medication Instructions Recorded Confirmed Losartan [Cozaar] 25 mg PO DAILY 01/12/14 03/22/18 Venlafaxine ER [Effexor ER] 75 mg PO DAILY 01/12/14 03/22/18 Aspirin [Aspir 81] 81 mg PO DAILY 02/06/14 03/22/18 Metoprolol Succinate 25 mg PO DAILY 02/18/16 03/22/18 Simvastatin 20 mg PO DAILY 02/18/16 03/22/18 Cetirizine HCl 10 mg PO DAILY 03/22/18 03/22/18 Omeprazole 40 mg PO DAILY 03/22/18 03/22/18 Ibuprofen 600 mg PO BID #14 tablet 03/23/18 Metoprolol Succinate [Toprol Xl] 25 mg PO DAILY #30 tablet 03/23/18 Flecainide [Tambocar] 4 tab PO DAILY PRN #24 tablet 07/28/18 - Allergies Allergies/Adverse Reactions: Allergies Allergy/AdvReac Type Severity Reaction Status Date / Time No Known Drug Allergies Allergy Verified 03/18/19 12:22 - Social History Does the pt smoke?: Yes Smoking Status: Current every day smoker Does the pt drink ETOH?: Yes Does the pt have substance abuse?: No - Immunizations Immunizations are current?: Yes - POLST Patient has POLST: No POLST Status: Full Code PD ED PE NORMAL - Vitals Vital signs reviewed: Yes - General General: Alert and oriented X 3, No acute distress - HEENT HEENT: Moist mucous membranes - Neck Neck: Supple, no meningeal sign - Cardiac Cardiac: RRR, Strong equal pulses - Respiratory Respiratory: No respiratory distress, Clear bilaterally - Abdomen Abdomen: Soft, Non tender, Non distended - Back Back: No spinal TTP - Derm Derm: Warm and dry - Extremities Extremities: No edema - Neuro Neuro: Alert and oriented X 3 - Psych Psych: Normal mood, Normal affect Results - Vitals Vitals: Vital Signs - 24 hr 03/18/19 03/18/19 03/18/19 12:20 12:52 13:00 Temperature 35.9 C L Heart Rate 80 132 H 124 H Respiratory 19 14 23 Rate Blood Pressure 149/100 H 157/114 H O2 Saturation 98 100 97 03/18/19 03/18/19 03/18/19 13:05 13:10 13:20 Temperature Heart Rate 124 H 116 H 87 Respiratory 17 22 16 Rate Blood Pressure 141/80 H 150/107 H 137/89 H O2 Saturation 97 97 98 03/18/19 13:30 Temperature Heart Rate 80 Respiratory 12 Rate Blood Pressure 147/97 H O2 Saturation 97 Oxygen O2 Source Room air - EKG (time done) 1228 Rate: Rate (enter#) (127) Rhythm: Atrial fibrillation (w RVR) [place]: Normal QRS: Normal Ischemia: Normal ST segments - Labs Labs: Laboratory Tests 03/18/19 12:50 WBC 7.3 RBC 4.55 Hgb 14.8 Hct 44.1 MCV 96.9 MCH 32.5 H MCHC 33.6 RDW 13.6 Plt Count 212 MPV 11.1 H Neut # (Auto) 4.1 Lymph # (Auto) 2.4 [place] # (Auto) 0.6 Eos # (Auto) 0.2 Baso # (Auto) 0.1 Absolute Nucleated RBC 0.00 Nucleated RBC % 0.0 - Rads (name of study) cxr Radiology: Prelim report reviewed, EMP read contemporaneously, See rad report (no acute disease) PD MEDICAL DECISION MAKING - ED course Complexity details: reviewed results, re-evaluated patient, considered differential, d/w patient, d/w family ED course: 53-year-old female presents the emergency department paroxysmal atrial fibrillation. Converted back to normal sinus rhythm after a dose of IV Lopressor. Asymptomatic. We will follow-up with her doctor for further care. Patient counseled regarding signs and symptoms for which I believe and urgent re-evaluation would be necessary. Patient with good understanding of and agreement to plan and is comfortable going home at this time This document was made in part using voice recognition software. While efforts are made to proofread this document, sound alike and grammatical errors may occur. Departure - Departure Disposition: 01 Home, Self Care Clinical Impression: Paroxysmal atrial fibrillation Condition: Good Instructions: ED Afib Follow-Up: Joana Pretty ARNP [Primary Care Provider] - Within 1 week Comments: You are back in sinus rhythm. Return if you worsen. Discharge Date/Time: 03/18/19 13:50
--- NOTE | 2019-03-18 13:07 | XRAY Report ---
Reason: chest pressure Procedure Date: 03/18/2019 Accession Number: [id number] / [id number] Procedure: XR - Chest 1 View X-Ray CPT Code: 36821 FULL RESULT: EXAM: CHEST RADIOGRAPHY EXAM DATE: 03/18/2019 12:40 PM. CLINICAL HISTORY: Chest pressure. COMPARISON: CHEST 2 VIEW 03/22/2018 12:28 PM. TECHNIQUE: 1 view. FINDINGS: Lungs/Pleura: No focal opacities evident. No pleural effusion. No pneumothorax. Mediastinum: Within exam limitations, the cardiomediastinal contour is normal. Other: None. IMPRESSION: Normal single view chest. RADIA
[2019-03-18 13:13] LABS: BASOPHILS # (AUTO) 0.1 10^3/uL (0.0-0.1); BASOPHILS % (AUTO) 1.1 %; EOSINOPHILS # (AUTO) 0.2 10^3/uL (0.0-0.7); EOSINOPHILS % (AUTO) 2.6 %; HGB - HEMOGLOBIN 14.8 g/dL (12.0-16.0); LYMPHOCYTES # (AUTO) 2.4 10^3/uL (1.5-3.5); LYMPHOCYTES % (AUTO) 32.2 %; MEAN CORPUSCULAR HEMOGLOBIN 32.5 pg (27.0-31.0); MEAN CORPUSCULAR HGB CONC 33.6 g/dL (32.0-36.0); MEAN CORPUSCULAR VOLUME 96.9 fL (81.0-99.0); MEAN PLATELET VOLUME 11.1 fL (7.9-10.8); MONOCYTES # (AUTO) 0.6 10^3/uL (0.0-1.0); NEUTROPHILS # (AUTO) 4.1 10^3/uL (1.5-6.6); NEUTROPHILS % (AUTO) 55.6 %; PLT - PLATELET COUNT 212 10^3/uL (130-450); RED BLOOD COUNT 4.55 10^6/uL (4.20-5.40); RED CELL DISTRIBUTION WIDTH 13.6 % (12.0-15.0); WHITE BLOOD COUNT 7.3 x10^3/uL (4.8-10.8)
[2019-03-18 13:42] VITALS: BP 147/97
== END 2019-03-18 13:50 | disposition home or self-care (01) ==
LOC: ED 12:13
DX: I48.0 Paroxysmal atrial fibrillation (principal); I10 Essential (primary) hypertension; F17.200 Nicotine dependence, unspecified, uncomplicated
CPT/HCPCS: 36415; 71045; 80053; 83690; 85025; 93005; 96374; 99283

== ENCOUNTER 2019-04-13 10:53 | Day surgery (SDC) | payer OTHER ==
[2019-04-13] MEDS ORDERED: fentaNYL 250 MCG/5 ML VIAL IVP ONE (10:54)
[2019-04-13] MEDS ORDERED: MIDAZOLAM 2 MG/2 ML VIAL IVP ONE (10:54)
[2019-04-13] MEDS ORDERED: LACTATED RINGERS 1,000 ML IV ONE (11:54)
--- NOTE | 2019-04-13 13:48 | SURGERY HX AND PHYSICAL(T) ---
Surgical History & Physical - PMH/PSH/Social Hx Does the pt have a hx of MRSA?: No Eyes, Ears, Nose, Throat: None Cardiovascular: Hypertension, High cholesterol Respiratory: None Skin: None Endocrine/Autoimmune: Other Gastrointestinal: GERD Urinary: None Musculoskeletal: None Blood Disorders: None Psychiatric: Panic attacks General: Appendectomy, Hiatal hernia repair, EGD Urologic: Bladder surgery Smoking Status: Current every day smoker Does the pt drink ETOH?: Yes Frequency: Occasional Does the pt have substance abuse?: No - Home Meds and Allergies Home Medications: Losartan [Cozaar] 25 mg PO DAILY 01/12/14 Venlafaxine ER [Effexor ER] 75 mg PO DAILY 01/12/14 Aspirin [Aspir 81] 81 mg PO DAILY 02/06/14 Metoprolol Succinate 25 mg PO DAILY 02/18/16 Simvastatin 20 mg PO DAILY 02/18/16 Cetirizine HCl 10 mg PO DAILY 03/22/18 Omeprazole 40 mg PO DAILY 03/22/18 Allergies/Adverse Reactions: Allergies Allergy/AdvReac Type Severity Reaction Status Date / Time No Known Drug Allergies Allergy Verified 03/18/19 12:22 - Vital Signs Heart Rate: 91 Blood Pressure: 149/92 Temperature: 36.1 C Respiratory Rate: 18 O2 Saturation: 97 Weight (kg): 85.5 kg Height: 1.55 m - Patient Review Patient Review: Problems were reviewed with the patient during this visit. Medications were reviewed with the patient during this visit. Allergies were reviewed this patient during this visit. Pertinent Tests Reviewed: All pertitent test for this patient were reviewed. - Assessment & Plan Assessment and Plan: On February 14, 2019 I saw this very same 53-year-old female for the exact same reasons on consultation for painful defecation and chronic diarrhea. The patient was sent to our office by Dr. Austin from the [facility]. There have been no substantive changes to her history and physical in the interim. She was initially scheduled for the procedure on March 02, 2019 and they do not know why this did not proceed as scheduled. The stools are occasionally tinged with blood. The diarrhea has also been present for the better part of 5 years. The pain that she has gets to the point where she feels like she is going to faint. Her last colonoscopy performed in April 2016 found 3 tubular adenomas and 6 mg of Versed and 150 mcg of fentanyl were used for conscious sedation. Allergies: No Known Allergies Medications: SUPREP BOWEL PREP KIT 17.5-3.13-1.6 GM/180ML ORAL SOLUTION (NA SULFATE-K SULFATE-MG SULF) Take as directed; Route: ORAL NEXIUM 20 MG ORAL CAPSULE DELAYED RELEASE (ESOMEPRAZOLE MAGNESIUM) Take one tablet by mouth daily, one-half hour before evening meal; Route: ORAL SIMVASTATIN 20 MG ORAL TABLET (SIMVASTATIN) Take one tablet by mouth at bedtime; Route: ORAL METOPROLOL SUCCINATE ER 25 MG ORAL TABLET EXTENDED RELEASE 24 HOUR (METOPROLOL SUCCINATE) Take one tablet by mouth daily; Route: ORAL NITROSTAT 0.3 MG SUBLINGUAL TABLET SUBLINGUAL (NITROGLYCERIN) ; Route: SUBLINGUAL * VENLAFAXINE HCL 75 MG TABS (VENLAFAXINE HCL) Take one tablet by mouth twice daily; Route: ORAL LOSARTAN POTASSIUM 25 MG ORAL TABLET (LOSARTAN POTASSIUM) Take one tablet by mouth daily; Route: ORAL ASPIRIN EC 81 MG ORAL TABLET DELAYED RELEASE (ASPIRIN) Take one tablet by mouth daily; Route: ORAL * MASSAGE THERAPY DX: 719.41, 723.1 NEVIN: 12mo CYCLOBENZAPRINE HCL 10 MG ORAL TABLET (CYCLOBENZAPRINE HCL) Take one tablet by mouth qhs * CONTOUR LANCETS use to check BS daily Dx:790.6 * CONTOUR TEST STRIPS use to check BS daily Dx:790.6 * VITAMIN D-3 4000 IU once daily for vit D deficiency EFFEXOR XR 75 MG ORAL CAPSULE EXTENDED RELEASE 24 HOUR (VENLAFAXINE HCL) take one capsule po daily Past Medical History: GERD ABNORMAL BRUISING (ICD-782.9) LEG PAIN, BILATERAL (ICD-729.5) SEBORRHEIC KERATOSIS (ICD-702.19) ACTINIC KERATOSIS (ICD-702.0) RECTAL BLEEDING (ICD-569.3) CHONDROMALACIA (ICD-733.92) HYPERKALEMIA (ICD-276.7) VITAMIN D DEFICIENCY (ICD-268.9) CHEST PAIN (ICD-786.50) MAMMOGRAM, ABNORMAL (ICD-793.80) KNEE PAIN, LEFT, CHRONIC (ICD-719.46) Sx of ALLERGY, ENVIRONMENTAL (ICD-995.3) SMOKER (ICD-305.1) PANIC ATTACK (ICD-300.01) GERD (ICD-530.81) Past Surgical History: Appendicitis Tubal ligation Left breast bx - benign Esophageal repair Bladder suspension Family History Summary: Family History of Stroke/CVA for Mother - Entered On: 04/21/2016 Family History of Congenital Heart Disease for Father - Entered On: 02/14/2019 Family History of Congenital Heart Disease for Sister - Entered On: 02/14/2019 Social History Summary: Patient currently smokes every day. Patient has been counseled to quit. Passive Smoke: N Alcohol Use: Y Drug Use: N HIV/High Risk: N Regular Exercise: N Review of Systems CONSTITUTIONAL: No weight loss, fever, chills, weakness, or fatigue. HEENT: Eyes: No visual loss, blurred vision, double vision or yellow sclerae. Ears, Nose, Throat: No hearing loss, sneezing, congestion, runny nose, or sore throat. SKIN: No rash or itching. RESPIRATORY: No shortness of breath, cough or sputum. GASTROINTESTINAL: No anorexia, nausea, vomiting or diarrhea. No abdominal pain or blood. GENITOURINARY: No dysuria. Not . NEUROLOGICAL: No headache, dizziness, syncope, paralysis, ataxia, numbness or tingling in the extremities. No change in bowel or bladder control. MUSCULOSKELETAL: No muscle, back pain, joint pain or stiffness. HEMATOLOGIC: No anemia, bleeding or bruising. LYMPHATICS: No enlarged nodes. No history of splenectomy. PSYCHIATRIC: No history of depression or anxiety. HX PANIC ATTACKS. ENDOCRINOLOGIC: No reports of sweating, cold or heat intolerance. No polyuria or polydipsia. ALLERGIES: No history of asthma, hives, eczema or rhinitis. Physical Exam General: Evaluated in room 2 at [facility]'s am[facility] care unit. 53 year old, obese female, appears stated age, well developed,obese. HEENT: Normocephalic, atraumatic, extraocular movement intact, mucous membranes pink and moist, sclera anicteric and not injected, has venous navarrete on lip. Neck: Supple without pain on palpation, mass or bruit Cardiac: Regular rate and rhythm without rub, gallop, or murmur Chest: Clear to auscultation bilaterally Abdomen: Soft, nontender, normoactive bowel sounds, no hepatomegaly, no splenomegaly Genitourinary: Deferred Rectal: Deferred until colonoscopy Extremities: No gross neurovascular problem, no clubbing, cyanosis or edema Gait: Patient is on a gurney and I did not reevaluate this today. Psychiatric: Alert and oriented to person place and time, asks and answers questions appropriately, mood and affect appropriate Impression & Recommendations: Chronic diarrhea: Colonoscopy with possible biopsies and/or polypectomies. Indications, procedure, alternatives (such as barium enema, Cologuard and even no procedure at all) and risks including but not limited to perforation requiring operative repair, bleeding with its risks, and were fully explained to her. In the office, I allyson diagrams explaining the colonic anatomy and the proposed procedure and handed it to her. In the office, conscious sedation was discussed at length with her as were its risks including but not limited to loss of airway, aspiration, respiratory depression, and not enough relief of pain and anxiety and she indicated that she wished to have conscious sedation for her procedure. In the office, I explained that MAC anesthesia is associated with a higher incidence of colon perforation. Review of her history does not reveal any significant systemic disease that would contraindicate use of conscious sedation or MAC anesthesia. All questions were fully answered. Verbal and written consent was obtained. The patient in preparation for her colonoscopy has been n.p.o. and her colon has been mechanically prepped. 20 minutes of [id number] time spent with the patient the majority of which was spent in discussion and in the generation of this document
[2019-04-13 15:35] VITALS: BP 119/64
== END 2019-04-13 10:54 | disposition home or self-care (01) ==
LOC: SDS 10:53
PROVIDERS: ATTEND Surgery
PROC: 0DBN8ZX Excision of Sigmoid Colon, Via Natural or Artificial Opening Endoscopic, Diagnostic (ICD-10-PCS; 2019-04-13)
PROC: 0DBH8ZX Excision of Cecum, Via Natural or Artificial Opening Endoscopic, Diagnostic (ICD-10-PCS; principal; 2019-04-13 13:00)
DX: K52.9 Noninfective gastroenteritis and colitis, unspecified (principal); K64.8 Other hemorrhoids; I10 Essential (primary) hypertension; K21.9 Gastro-esophageal reflux disease without esophagitis; Z86.010 Personal history of colon polyps; F17.200 Nicotine dependence, unspecified, uncomplicated
CPT/HCPCS: 45380; J3010; J7120

== ENCOUNTER 2019-04-19 21:34 | Emergency (ER) | payer OTHER ==
--- NOTE | 2019-04-19 21:37 | ED Physician Documentation ---
PD HPI UPPER EXT INJURY - Stated complaint Stated Complaint: L HAND BRUISING - History obtained from History obtained from: Patient - History of Present Illness Location: Left, Hand (dorsum) Type of injury: Other (she had IV at that spot of the hand 6 days ago, and the hand was seeming okay until today when she noticed some bruising (purple green color) on the back of the hand. Concerned about it showing up delayed like this and worried about "blood clot".) Timing - onset: Today Timing - duration: Days (1) Timing - details: Abrupt onset Worsened by: No: Moving, Palpating Associated symptoms: Swelling, Discolored (purple/green bruising.). No: Weakness, Numbness Contributing factors: No: Anticoagulated Recently seen: Surgery (had colonoscopy 6 days ago without problems.) Review of Systems Constitutional: denies: Fever, Chills Cardiac: denies: Chest pain / pressure, Pedal edema, Calf pain Respiratory: denies: Dyspnea, Cough PD PAST MEDICAL HISTORY - Past Medical History Cardiovascular: Hypertension, High cholesterol Respiratory: None Endocrine/Autoimmune: Other GI: GERD : None HEENT: None Psych: Panic attacks Musculoskeletal: None Derm: None - Past Surgical History Past Surgical History: Yes General: Appendectomy, Hiatal hernia repair, EGD - Present Medications Home Medications: Ambulatory Orders Medication Instructions Recorded Confirmed Losartan [Cozaar] 25 mg PO DAILY 01/12/14 03/22/18 Venlafaxine ER [Effexor ER] 75 mg PO DAILY 01/12/14 03/22/18 Aspirin [Aspir 81] 81 mg PO DAILY 02/06/14 03/22/18 Metoprolol Succinate 25 mg PO DAILY 02/18/16 03/22/18 Simvastatin 20 mg PO DAILY 02/18/16 03/22/18 Cetirizine HCl 10 mg PO DAILY 03/22/18 03/22/18 Omeprazole 40 mg PO DAILY 03/22/18 03/22/18 Metoprolol Succinate [Toprol Xl] 25 mg PO DAILY #30 tablet 03/23/18 Flecainide [Tambocar] 4 tab PO DAILY PRN #24 tablet 07/28/18 - Allergies Allergies/Adverse Reactions: Allergies Allergy/AdvReac Type Severity Reaction Status Date / Time No Known Drug Allergies Allergy Verified 04/19/19 21:42 - Social History Does the pt smoke?: Yes Smoking Status: Current every day smoker Does the pt drink ETOH?: Yes Does the pt have substance abuse?: No - Immunizations Immunizations are current?: Yes - POLST Patient has POLST: No POLST Status: Full Code PD ED PE NORMAL - Vitals Vital signs reviewed: Yes - General General: Alert and oriented X 3, No acute distress, Well developed/nourished - Derm Derm: Warm and dry - Extremities Extremities: Other (dorsum left hand with purple/greenish bruising over most of the hand area, with slight edema. No tenderness. Small pinpoint scab c/w recent IV site. No red nor purulence. Forearm without tenderness, redness, nor swelling. ) - Neuro Neuro: No motor deficit, No sensory deficit Results - Vitals Vitals: Vital Signs - 24 hr 04/19/19 21:40 Temperature 36.2 C L Heart Rate 80 Respiratory 16 Rate Blood Pressure 132/75 H O2 Saturation 98 Oxygen O2 Source Room air Departure - Departure Disposition: 01 Home, Self Care Clinical Impression: Traumatic ecchymosis of left hand Qualifiers: Encounter type: initial encounter Qualified Code(s): S60.222A - Contusion of left hand, initial encounter Condition: Stable Record reviewed to determine appropriate education?: Yes Follow-Up: Joana Pretty, UROLOGY PHYSICIAN [Primary Care Provider] - Comments: The swelling and discoloration should go away slowly over several days to week. There is no signs of deep vein issues (blood clots). This can be treated with an Bryson wrap. You could use Tylenol if needed for pains. Discharge Date/Time: 04/19/19 22:14
[2019-04-19 21:42] VITALS: BP 132/75
== END 2019-04-19 22:14 | disposition home or self-care (01) ==
LOC: ED 21:34
DX: S60.222A Contusion of left hand, initial encounter (principal); I10 Essential (primary) hypertension; F17.200 Nicotine dependence, unspecified, uncomplicated; X58.XXXA Exposure to other specified factors, initial encounter
CPT/HCPCS: 99282

== ENCOUNTER 2019-08-28 15:51 | Outpatient (CLI) | payer OTHER ==
[2019-08-28 16:03] LABS: BASOPHILS # (AUTO) 0.1 10^3/uL (0.0-0.1); BASOPHILS % (AUTO) 0.9 %; EOSINOPHILS # (AUTO) 0.2 10^3/uL (0.0-0.7); EOSINOPHILS % (AUTO) 2.8 %; LYMPHOCYTES # (AUTO) 2.1 10^3/uL (1.5-3.5); LYMPHOCYTES % (AUTO) 28.8 %; MEAN CORPUSCULAR HEMOGLOBIN 32.3 pg (27.0-31.0); MEAN PLATELET VOLUME 10.3 fL (7.9-10.8); MONOCYTES # (AUTO) 0.8 10^3/uL (0.0-1.0); MONOCYTES % (AUTO) 10.1 %; NEUTROPHILS # (AUTO) 4.2 10^3/uL (1.5-6.6); PLT - PLATELET COUNT 205 10^3/uL (130-450); RED BLOOD COUNT 4.02 10^6/uL (4.20-5.40); RED CELL DISTRIBUTION WIDTH 13.7 % (12.0-15.0); WHITE BLOOD COUNT 7.4 x10^3/uL (4.8-10.8)
[2019-08-28 16:14] LABS: CALCIUM 9.5 mg/dL (8.5-10.3); CREATININE 0.5 mg/dL (0.4-1.0)
== END 2019-08-28 15:52 | disposition home or self-care (01) ==
LOC: LAB 15:51
PROVIDERS: ATTEND Student in an Organized Health Care Education/Training Program
DX: I48.91 Unspecified atrial fibrillation (principal)
CPT/HCPCS: 36415; 80048; 84443; 85025

== ENCOUNTER 2020-08-28 10:12 | Outpatient (CLI) | payer OTHER ==
[2020-08-28 10:38] LABS: CALCIUM 10.2 mg/dL (8.5-10.3); CREATININE 0.8 mg/dL (0.4-1.0)
== END 2020-08-28 10:13 | disposition home or self-care (01) ==
LOC: LAB 10:12
PROVIDERS: ATTEND Nurse Practitioner Family
DX: Z51.81 Encounter for therapeutic drug level monitoring (principal); Z79.899 Other long term (current) drug therapy
CPT/HCPCS: 36415; 80048

== ENCOUNTER 2022-10-26 12:16 | Outpatient (CLI) | payer OTHER ==
[~2022-10-26 12:16] MED LIST: GADOBUTROL 7.5 MMOL/7.5 ML VIAL ONE; LIDOCAINE-MPF 1% 5 ML VIAL ONE
[2022-10-26] MEDS ORDERED: GADOBUTROL 7.5 MMOL/7.5 ML VIAL IVP ONE (14:13)
[2022-10-26] MEDS ORDERED: LIDOCAINE-MPF 1% 5 ML VIAL TD ONE (14:14)
--- NOTE | 2022-10-26 15:32 | MRI Report ---
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 TECHNIQUE: After the administration of 10 mL of dilute intra-articular Gadolinium contrast, coronal STIR of the bony pelvis; coronal and oblique axial T1 spin echo with fat saturation, axial T2 fast spin echo with fat saturation, sagittal T1 spin echo with and without fat saturation of the involved hip. COMPARISON: None FINDINGS: Image quality: Excellent. Bones and joints: There are postsurgical changes involving the patient's left hip and there are findi ngs of the bilateral AVN which is moderate on the left and [id number] on the right. There does appear to be some mild subchondral collapse on the right. Tendons and ligaments: The gluteus medius and minimus tendons appear intact, without associated musc le atrophy. The nearby proximal iliotibial band also appears intact. The iliopsoas tendon appears i ntact, without adjacent bursal fluid collections or evidence for impingement syndrome. The origin of the hamstring tendon is intact at the ischial tuberosity, as well as the associated sacrotuberous li gament. The straight and reflected heads of the rectus femoris muscle origin appear intact, as well as the conjoint tendon. The ligamentum teres appears intact where visualized. Labrum and cartilage: There is a tear involving the superior hip labrum. There are areas of cartilage thinning and areas of denuded cartilage secondary to the AVN and associated secondary degenerative c hange.. No paralabral cysts. The alpha angle of the femur is within normal limits at less than 55 d egrees. Soft tissues: Visualized muscles demonstrate normal bulk and internal signal. Quadratus femoris mus mushtaq demonstrates no internal edema to suggest ischiofemoral impingement. The proximal sciatic neurov ascular bundle appears normal adjacent to the hamstring tendons. No free pelvic fluid. Bladder wall thickness is normal. Genitourinary structures and bowel loops appear normal where visualized. IMPRESSION: 1. Prior postsurgical changes involving the patient's left femoral head and neck. 2. 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 3. Mild subchondral collapse on the left. 4. Tear involving the superior hip labrum. 5. Moderate degenerative changes and areas of denuded cartilage involving the patient's left femoral head from the AVN and secondary degenerative change. 6. Mild left-sided trochanteric bursitis. Reviewed by: Vasyl Lerma MD on 10/26/2022 3:31 PM PDT Approved by: Vasyl Lerma MD on 10/26/2022 3:31 PM PDT Station ID: [id number]
--- NOTE | 2022-10-26 16:06 | XRAY Report ---
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 Written informed consent was obtained and placed in the chart. The shoulder was examin ed fluoroscopically and a site for needle placement chosen for entry into the left hip joint from an anterior approach. The skin was prepped and draped in the usual fashion, and 1% lidocaine infiltrate d from skin down to joint capsule. A spinal needle was inserted into the left hip joint, and a small amount of iodinated contrast media injected to confirm intra-articular placement of the needle tip. This was followed by approximately 12 ml of saline/gadolinium (20cc normal saline/0.2 gadolinium) co ntrast solution. The needle was removed and a dressing was applied. The patient was given postprocedural instructions and sent to the MRI suite for imaging. FINDINGS: A single fluoroscopic spot image demonstrates intra-articular location of injected iodinated contrast . IMPRESSION: Successful fluoroscopically guided administration of iodinated contrast solution into the left hip marina int for MR arthrogram. Reviewed by: Jose Luis Yuan MD on 10/26/2022 4:05 PM PDT Approved by: Jose Luis Yuan MD on 10/26/2022 4:05 PM PDT Station ID: [id number]
== END 2022-10-26 12:17 | disposition home or self-care (01) ==
LOC: DI 12:16
PROVIDERS: ATTEND Orthopaedic Surgery
DX: S73.192A Other sprain of left hip, initial encounter (principal); M87.052 Idiopathic aseptic necrosis of left femur; M87.051 Idiopathic aseptic necrosis of right femur; S73.102A Unspecified sprain of left hip, initial encounter; M16.7 Other unilateral secondary osteoarthritis of hip; M70.62 Trochanteric bursitis, left hip
CPT/HCPCS: 27093; 73722; 77002; A9585; Q9965